=== PATIENT | female | born 1985 | race Two or more races ===

== ENCOUNTER 2022-03-20 09:22 | Emergency (ER) | payer MEDICAID, OTHER ==
[2022-03-20 11:07] VITALS: BP 136/90
== END 2022-03-20 11:39 | disposition home or self-care (01) ==
LOC: ER 09:22
DX: K11.20 Sialoadenitis, unspecified (principal); J45.909 Unspecified asthma, uncomplicated; Z88.8 Allergy status to other drugs, medicaments and biological substances; Z20.822 Contact with and (suspected) exposure to COVID-19
CPT/HCPCS: 36415; 76536; 87070; 87880